=== PATIENT | female | born 1985 | race Two or more races ===

== ENCOUNTER 2024-12-22 14:12 | Emergency (ER) | payer OTHER ==
[~2024-12-22] VITALS: Ht 160 cm; Wt 84.8 kg
[2024-12-22] MEDS ORDERED: HUMALOG100 UNIT/2 SQ (15:09)
[2024-12-22] MEDS ORDERED: LANTUS SOL100 UNIT/1 SQ (15:09)
[2024-12-22 15:11] VITALS: BP 152/85; O2SAT 98
[2024-12-22] MEDS ORDERED: CEFTRIAXONE SODIUM 1,000 MG VIAL IM ONE (16:30)
[2024-12-22] MEDS ORDERED: CETIRIZINE HCL 5 MG/5 ML ML PO ONE (16:30)
[2024-12-22] MEDS ORDERED: KETOROLAC TROMETHAMINE 60 MG VIAL IM ONE ×2 (16:30→16:42)
[2024-12-22] MEDS ORDERED: CETIRIZINE HCL 5MG/5ML BLIST.PACK PO ONE (16:42)
[2024-12-22] MEDS ORDERED: CEFTRIAXONE SODIUM 1,000 MG VIAL ONE (16:42)
[2024-12-22 17:00] LABS: BASO % 0.6 % (0.1-1.2); EOS # 0.07 (0.04-0.54); EOS % 1.4 % (0.7-7.0); LYMPH # 1.66 (1.18-3.74); LYMPH % 32.4 % (19.3-53.1); MEAN PLATELET VOLUME 10.60 fl (9.4-12.4); MONO # 0.67 (0.24-0.82); NEUT # 2.68 (1.56-6.13); NEUT % 52.3 % (34.0-71.1); RED CELL DISTRIBUTION WIDTH 12.5 % (11.6-14.4)
[2024-12-22 17:02] LABS: MONO % 13.1 % (4.7-12.5)
[2024-12-22 17:15] LABS: COVID-19 AG NEGATIVE (NEGATIVE)
[2024-12-22 17:22] LABS: INR 0.95
[2024-12-22 17:53] LABS: ALT/SGPT 32 U/L (12-78); AST/SGOT 17 U/L (15-37); BILIRUBIN TOTAL 0.29 mg/dL (0.3-1.2); BUN CREA RATIO 13 (7.0-25.0); CREATININE SERUM 0.85 mg/dL (0.55-1.02); GFR 73.70; GLOBULINA 4.0 G/DL (2.4-3.5)
[2024-12-22 17:54] LABS: GLUCOSE FASTING 309 mg/dL (65-100); HCG QUANTITATIVE < 1 mUI/mL (1-3); OSMOLALITY SERUM 285 MOSM/KG (275-295)
[2024-12-22 17:56] LABS: URINE APPEARANCE Clear; URINE BILIRRUBIN Negative (NEGATIVE); URINE BLOOD Negative; URINE COLOR Yellow; URINE KETONE Negative (NEGATIVE); URINE LEUKOCYTE Negative; URINE NITRATE Negative; URINE PROTEIN Negative (NEGATIVE); URINE UROBILINOGEN 0.2 E.U./dl
[2024-12-22 17:57] LABS: URINE BACTERIA 2245.0 uL (0.0-1933); URINE EPITHELIAL CELLS 94.1 uL (0.0-38.8); URINE RBC 6.5 uL (0.0-20.8); URINE WBC 70.9 uL (0.0-23.2)
[2024-12-22 17:58] LABS: URINE CAST 0.29 uL (0.0-1.40); URINE GLUCOSE >=1000 MG/DL (NEGATIVE)
[2024-12-22] MEDS ORDERED: PEPCID AC20 MG PO (18:28)
[2024-12-22] MEDS ORDERED: ZYRTEC10 MG PO (18:28)
[2024-12-22] MEDS ORDERED: PROBIOTIC1 EAC2 PO (18:28)
== END 2024-12-22 18:44 | disposition home or self-care (01) ==
LOC: ER 14:55
PROVIDERS: General Practice
DX: J02.9 Acute pharyngitis, unspecified (principal); R10.11 Right upper quadrant pain; Z20.822 Contact with and (suspected) exposure to COVID-19; E11.9 Type 2 diabetes mellitus without complications; Z79.4 Long term (current) use of insulin

== ENCOUNTER 2025-01-04 08:32 | Outpatient (CLI) | payer OTHER ==
[~2025-01-04 08:32] MED LIST: HUMALOG100 UNIT/2 SQ; LANTUS SOL100 UNIT/1 SQ; PEPCID AC20 MG PO; PROBIOTIC1 EAC2 PO; ZYRTEC10 MG PO
== END 2025-01-04 08:41 | disposition home or self-care (01) ==
LOC: MRI 08:32
PROVIDERS: ATTEND Surgery
DX: R10.11 Right upper quadrant pain (principal)
CPT/HCPCS: 74181

== ENCOUNTER 2025-04-13 06:20 | Emergency (ER) | payer OTHER ==
[~2025-04-13] VITALS: Ht 160 cm; Wt 86.2 kg
[2025-04-13] MEDS ORDERED: LOSARTAN POTASS50 MG PO (06:27)
[2025-04-13] MEDS ORDERED: MOUNJARO5 MG/0.5 M SQ (06:27)
[2025-04-13] MEDS ORDERED: CEFTRIAXONE SODIUM 1,000 MG VIAL IV ONE (07:45)
[2025-04-13] MEDS ORDERED: ORPHENADRINE CITRATE 100 MG TABLET PO ONE (07:45)
[2025-04-13 08:39] LABS: BASO % 0.4 % (0.1-1.2); EOS # 0.17 (0.04-0.54); EOS % 2.4 % (0.7-7.0); LYMPH # 2.29 (1.18-3.74); LYMPH % 32.2 % (19.3-53.1); MEAN PLATELET VOLUME 10.70 fl (9.4-12.4); MONO # 0.55 (0.24-0.82); MONO % 7.7 % (4.7-12.5); NEUT # 4.05 (1.56-6.13); NEUT % 57.0 % (34.0-71.1); RED CELL DISTRIBUTION WIDTH 13.0 % (11.6-14.4)
[2025-04-13] MEDS ORDERED: ONDANSETRON HCL 2 MG/ML VIAL IV ONE (08:45)
[2025-04-13] MEDS ORDERED: ONDANSETRON HCL 2 MG/ML VIAL ONE (08:48)
[2025-04-13 09:29] LABS: ALT/SGPT 37 U/L (12-78); AST/SGOT 23 U/L (15-37); BILIRUBIN TOTAL 0.43 mg/dL (0.3-1.2); BUN CREA RATIO 20 (7.0-25.0); CREATININE SERUM 0.71 mg/dL (0.55-1.02); GFR 90.27; GLOBULINA 3.9 G/DL (2.4-3.5); GLUCOSE FASTING 143 mg/dL (65-100); OSMOLALITY SERUM 282 MOSM/KG (275-295)
[2025-04-13 09:31] LABS: HCG QUANTITATIVE < 1 mUI/mL (1-3)
[2025-04-13 09:35] LABS: URINE APPEARANCE Clear; URINE BILIRRUBIN Negative (NEGATIVE); URINE BLOOD Negative; URINE COLOR Yellow; URINE GLUCOSE Negative (NEGATIVE); URINE KETONE Trace (NEGATIVE); URINE LEUKOCYTE Trace; URINE NITRATE Negative; URINE PROTEIN Negative (NEGATIVE); URINE UROBILINOGEN 0.2 E.U./dl
[2025-04-13 09:39] LABS: URINE EPITHELIAL CELLS 12.2 uL (0.0-38.8); URINE RBC 5.5 uL (0.0-20.8); URINE WBC 21.5 uL (0.0-23.2)
[2025-04-13 09:41] LABS: URINE CAST 0.28 uL (0.0-1.40)
[2025-04-13] MEDS ORDERED: BACTRIM DS TAB1 EACH PO (13:34)
[2025-04-13] MEDS ORDERED: NORFLEX100MG PO (13:34)
== END 2025-04-13 13:44 | disposition home or self-care (01) ==
LOC: ER 06:21
PROVIDERS: General Practice
DX: R10.20 Pelvic and perineal pain unspecified side (principal); N39.0 Urinary tract infection, site not specified; R11.0 Nausea; I10 Essential (primary) hypertension; E11.9 Type 2 diabetes mellitus without complications; Z79.4 Long term (current) use of insulin